=== PATIENT | female | born 1955 | race Caucasian/White ===

== ENCOUNTER 2021-02-12 21:00 | Emergency (ER) | payer MEDICARE, MEDICAID ==
[~2021-02-12] VITALS: Ht 172.7 cm; Wt 68.0 kg
[~2021-02-12 21:00] MED LIST: ACET-685 PO; AMIO100T4 PO; AMLO-170 PO; BUDE0.5A3 IH; BUDE10.22 IH; CARV12.5 PO; CARV25TA PO; CARV6.252 PO; CEPH-350 PO; CLON0.2T PO; EZET10TA20 PO; FURO40TA4 PO; LEVA0.6320 IH; LISI20TA21 PO; LORA-447 PO; LOSA100T14 PO; LOSA1TAB22 PO; LOSA25TA2 PO; LOSA50TA14 PO; NICO-449 TD; PANT40TA3 PO; POTA10TA6 PO; PRED20TA PO; RANO500T2 PO; ROFL500T PO; ROSU10TA2 PO; SERT100T PO; SPIR25TA5 PO; WARF-35 PO; WARF5TAB2 PO; WARF6TAB PO; WARF7.5T PO
--- NOTE | 2021-02-12 21:12 | ER.PDOC ---
General Chief Complaint: Requesting Medical Care Stated Complaint: LEG/FOOT SWELLING Time seen by MD: 21:03 Source: patient, EMS Exam Limitations: no limitations History of Present Illness Initial Comments Patient presents via EMS for right leg pain and swelling. She has hx of lung CA with bone mets. The pain began yesterday and the right foot swelling started today. No chest pain or SOB. No fall or injury.Pain is a burning pressure, 4/10 in severity. No other complaints. She missed her last chemo session 10 days ago because she was not feeling well and her labs were "bad". Allergies: Coded Allergies: No Known Allergies (Unverified , 10/23/19) Home Meds Active Scripts Roflumilast (DALIRESP) 500 Mcg Tablet, 250 MCG PO DAILY for 30 Days, TAB Prov:DEREJE MEYER MD 11/21/19 Levalbuterol Hcl (XOPENEX) 0.63 Mg/3 Ml Vial.neb, 0.63 MG IH RTQ6 for 30 Days, EA Prov:DEREJE MEYER MD 11/21/19 Lorazepam (ATIVAN) 0.5 Mg Tablet, 0.5 MG PO BID for 30 Days, TABLET Prov:DEREJE MEYER MD 11/29/15 Reported Medications Dronabinol (DRONABINOL) 10 Mg Capsule, 1 CAP PO BID MDD 2 Capsule(s) for 30 Days, #60 CAP 0 Refills 02/12/21 Amiodarone HCl (Amiodarone HCl) 100 Mg Tablet, 1 TAB PO QD for 30 Days, #30 TAB 0 Refills 05/03/20 Ezetimibe (ZETIA) 10 Mg Tablet, 1 TAB PO QD for 30 Days, #30 TAB 0 Refills 05/03/20 Warfarin Sodium (COUMADIN) 7.5 Mg Tablet, 1 TAB PO DAILY, #30 TAB 05/03/20 Acetaminophen With Codeine (TYLENOL WITH CODEINE #3 TABLET) 1 Each Tablet, 1 EACH PO Q4H for PAIN, TAB 11/17/19 Losartan Potassium (LOSARTAN POTASSIUM) 100 Mg Tablet, 1 TAB PO DAILY, #30 TAB 5 Refills 11/17/19 Carvedilol 25MG (COREG 25MG) 25 Mg Tablet, 1 TAB PO BID, #60 TAB 5 Refills 11/17/19 Ranolazine (RANEXA) 500 Mg Tab.er.12h, 1 TAB PO BID, #60 TAB 3 Refills 12/18/17 Spironolactone (SPIRONOLACTONE) 25 Mg Tablet, 1 TAB PO BID, #90 TAB 1 Refill 11/27/15 Clonidine Hcl (CLONIDINE HCL) 0.2 Mg Tablet, 1 TAB PO DAILY PRN for ROSA M>170/90, #30 TAB 1 Refill 07/16/15 Amlodipine Besylate (AMLODIPINE BESYLATE) 10 Mg Tablet, 1 TAB PO DAILY, #90 TAB 3 Refills 07/16/15 Past Medical History Medical History: hypertension, other Surgical History: hysterectomy, other Social History Drug Use: none Reviewed Nursing Reviewed: Vital Signs, Abn. Noted, Nursing Assessment Review of Systems Constitutional: no symptoms reported EENTM: no symptoms reported Respiratory: no symptoms reported Cardiovascular: no symptoms reported Gastrointestinal: no symptoms reported Genitourinary: no symptoms reported Musculoskeletal: see HPI Skin: no symptoms reported Psychiatric/Neurological: no symptoms reported All Other Systems: Reviewed and Negative Physical Exam General Appearance: Alert, Mild Distress Lower Extremity: swelling (swelling to right foot and knee. Temp and color normal. No palpable right DP pulse, but dopplerable pulse present. Full ROM) Vascular: no vascular compromise, decreased pulses Neuro/Psych: sensation nml, motor nml, oriented x3, mood/affect nml Skin: color nml, warm/dry Back/Neck: nml inspection Respiratory: no resp distress, breath sounds nml CVS: reg rate & rhythm, heart sounds nml Abdomen: non-tender, no organomegaly Results/Orders Results/Orders Orders - JUWAN MCKEON MD Cbc With Auto Diff (02/12/21 21:14) Comprehensive Metabolic Panel (02/12/21 21:14) Creatine Kinase (02/12/21 21:14) Creatine Kinase Mb (02/12/21 21:14) Troponin I (02/12/21 21:14) Probnp B-Type Cook Fishing Vessel (02/12/21 21:14) PT (02/12/21 21:14) Partial Thromboplastin Time. (02/12/21 21:14) D-Dimer (02/12/21 21:14) Saline Lock (02/12/21 21:14) Morphine Sulfate (Morphine Sulfate) (02/12/21 21:14) Us Krysta (02/12/21 21:25) Morphine Sulfate (Morphine Sulfate) (02/12/21 21:26) Us Rt Vein U/L (02/12/21 21:25) Vital Signs Date Time Temp Pulse Resp B/P (MAP) Pulse Ox O2 Delivery O2 Flow Rate FiO2 02/12/21 21:24 101.1 93 20 115/49 (71) 93 Room Air 02/12/21 21:16 101.1 93 20 02/12/21 21:16 101.1 93 20 93 02/12/21 21:16 101.1 93 20 115/49 (71) 93 Room Air Laboratory Tests Test 02/12/21 21:22 White Blood Count 8.6 10^3/uL (4.5-11.0) Red Blood Count 3.02 10^6/uL (4.00-5.20) L Hemoglobin 8.8 g/dL (12.0-15.0) L Hematocrit 26.8 % (36.0-46.0) L Mean Corpuscular Volume 88.7 fL (78-100) Mean Corpuscular Hemoglobin 29.1 pg (26-34) Mean Corpuscular Hemoglobin Concent 32.8 g/dL (33-36.5) L Red Cell Distribution Width 13.7 % (11.5-14.5) Platelet Count 243 10^3/uL (150-400) Mean Platelet Volume 10.2 fL (7.8-11.0) Neutrophils (%) (Auto) 75.6 % (41.0-85.0) Lymphocytes (%) (Auto) 11.9 % (24.0-44.0) L Monocytes (%) (Auto) 11.8 % (5.0-12.0) Neutrophils # (Auto) 6.5 10^3/uL (1.8-7.7) Lymphocytes # (Auto) 1.02 10^3/uL1 (1.0-4.8) Monocytes # (Auto) 1.0 10^3/uL (0.3-0.8) H Absolute Immature Granulocyte (auto 0.03 10^3 u/L (0-2) Absolute Eosinophils (auto) 0.0 10^3/uL (0.0-0.2) Immature Granulocytes % 0.40 % (0.00-0.50) Eosinophils % 0.1 % (0.0-5.0) Basophils % 0.2 % (0.0-0.2) Basophils # 0.0 10^3/uL (0.0-0.1) Prothrombin Time > 170.9 SEC (9.3-11.3) H Prothrombin Time INR (Non-Therap) Activated Partial Thromboplast Time > 115.1 SEC (24.67-30.72) D-Dimer 0.76 mg/L (0.19-0.49) *H Sodium Level 133 mmol/L (132-145) Potassium Level 3.8 mmol/L (3.6-5.2) Chloride Level 97.0 mmol/L (96-109) Carbon Dioxide Level 24.5 mmol/L (20.0-32) Anion Gap 15.3 Blood Urea Nitrogen 15 mg/dL (7-18) Creatinine 1.44 mg/dL (0.59-1.40) H Estimated GFR () 44.2 (>/=60) Est GFR (CKD-EPI)(Non-Afr Bulgarian) 36.5 (>/=60) BUN/Creatinine Ratio 10.0 Glucose Level 112 mg/dL (70-110) H Calcium Level 8.5 mg/dL (8.4-10.5) Total Bilirubin 0.9 mg/dL (0.2-1.0) Aspartate Amino Transferase (AST) 27 U/L (0-35) Alanine Aminotransferase (ALT) 19 U/L (12-78) Alkaline Phosphatase 62 U/L (50-136) Total Creatine Kinase 32 U/L (26-192) Creatine Kinase MB < 0.5 ng/mL (0.5-3.6) L Troponin I < 0.02 ng/mL (0.00-0.05) Pro-B-Type Natriuretic Peptide 1574 pg/mL (0-125) H Total Protein 7.3 g/dL (6.4-8.2) Albumin 2.9 g/dL (3.4-5.0) L Globulin 4.4 Albumin/Globulin Ratio 0.659 Progress Progress The patient feels improved on reevaluation. Her leg pain improved without i ntervention and she declined pain meds here. US was negative for DVT or arterial occlusion. Suspect further bony mets as the likely cause. She will follow up with PCP in 2 days or return with any new or worsening sx ER DEPART Departure Time of Disposition: 00:01 Disposition: 01 HOME, SELF-CARE Impression: Primary Impression: Right leg swelling Additional Impression: Right leg pain Condition: Improved Referrals: DEREJE MEYER MD (PCP) PRIMARY CARE PROVIDER Duration or Time Spent with Pa: 25 Problem Qualifiers JUWAN MCKEON MD Feb 12, 2021 21:12
[2021-02-12] MEDS ORDERED: MORPHINE SULFATE IV STA (21:14)
[2021-02-12 21:16] VITALS: BP 115/49
[2021-02-12 21:24] VITALS: BP 115/49
[2021-02-12] MEDS ORDERED: MORPHINE SULFATE ONE (21:26)
[2021-02-12 21:28] LABS: BASOPHIL % 0.2 % (0.0-0.2); EOSINOPHIL % 0.1 % (0.0-5.0); LYMPHOCYTES # 1.02 10^3/uL1 (1.0-4.8); LYMPHOCYTES % 11.9 % (24.0-44.0); MEAN CORP HGB 29.1 pg (26-34); MONOCYTES % 11.8 % (5.0-12.0); NEUTROPHIL # 6.5 10^3/uL (1.8-7.7); NEUTROPHILS % 75.6 % (41.0-85.0); PLATELET COUNT 243 10^3/uL (150-400); RED CELL DISTRIBUTION WIDTH 13.7 % (11.5-14.5)
--- NOTE | 2021-02-12 21:30 | NUR ---
MORPHINE PT STATES SHE WOULD LIKE TO HOLD OFF ON THE MORPHINE FOR A BIT. STATES "IF I CHANGE MY MIND I WILL LET YOU KNOW."
[2021-02-12] MEDS ORDERED: DRON10CA5 PO (21:59)
[2021-02-12 22:00] LABS: ALANINE AMINOTRANSFERASE(ML) 19 U/L (12-78); ALKALINE PHOSPHATASE 62 U/L (50-136); ASPARTATE AMINO TRANSFERASE 27 U/L (0-35); CALCIUM 8.5 mg/dL (8.4-10.5); CARBON DIOXIDE 24.5 mmol/L (20.0-32); GLUCOSE 112 mg/dL (70-110)
--- NOTE | 2021-02-12 23:48 | DIREP ---
PROCEDURE:US DUPLEX EXTREM VEINS UNILATER/LIMITED-RT COMPARISON:None. INDICATIONS:RLE SWELLING, PAIN X3D, RT HIP FALL 01/12/2021, HX CA ON CHEMO TECHNIQUE:The RT lower extremity was evaluated utilizing joiner scale images with segmental compression, color Doppler, and spectral Doppler with respiratory variation and augmentation. FINDINGS: Common femoral vein:Patent Superficial femoral vein:Patent Popliteal vein:Patent Posterior tibial vein:Patent Anterior tibial vein:Patent Greater saphenous vein:Patent Left CFV is patent Waveforms: Within normal limits. CONCLUSION:No right-sided DVT. Dictated by: Abhay Holcomb MD on 02/12/2021 at 11:43 PM
--- NOTE | 2021-02-12 23:53 | DIREP ---
PROCEDURE:US ANKLE BRACHIAL INDEX COMPARISON:None. INDICATIONS:decreased pulse right leg, RLE PAIN X3D, HX RT HIP FALL 01/12/2021, PT HAS CA IS ON CHEMO TECHNIQUE:A color duplex Doppler ultrasound examination of the bilateral lower extremities was performed. Color image and bidirectional spectral Doppler wave form analysis, and peak systolic flow measurements of the posterior tibial and dorsalis pedis arteries were performed. FINDINGS: RIGHT LOWER EXTREMITY: GEORGE DP: 1.1 PT: 1.1 POSTERIOR TIBIAL:43 cm/smonophasic DORSALIS PEDIS:60 cm/sbiphasic LEFT LOWER EXTREMITY: GEORGE DP: 1.3 PT: 1.6 POSTERIOR TIBIAL:106 cm/smonophasic DORSALIS PEDIS:178 cm/sbiphasic CONCLUSION:Peripheral vascular disease left greater than right. ABIs greater than 1.4 indicate noncompressible vessels, likely to have significant peripheral vascular disease (PVD). ABIs of 0.91 to 1.3 indicate no significant obstructive disease. ABIs of 0.41 to 0.90 indicate grade I claudication. ABIs less than 0.4 indicate limb-threatening ischemia of grade I or grade II. Dictated by: Abhay Holcomb MD on 02/12/2021 at 11:47 PM
[2021-02-13 00:20] VITALS: BP 97/56
== END 2021-02-13 00:29 | disposition home or self-care (01) ==
LOC: ER 21:00 → EDBD 21:00 → ER 02-13 00:29
DX: M79.661 Pain in right lower leg (principal); M79.89 Other specified soft tissue disorders; I10 Essential (primary) hypertension; Z79.01 Long term (current) use of anticoagulants; Z79.899 Other long term (current) drug therapy; Z85.118 Personal history of other malignant neoplasm of bronchus and lung; Z90.710 Acquired absence of both cervix and uterus
CPT/HCPCS: 36415; 80053; 82550; 82553; 83880; 84484; 85025; 85379; 85610; 85730; 93922; 93971; 99285; J2270; 99284

== ENCOUNTER → 2021-02-18 | Outpatient (CLI) | payer MEDICARE, MEDICAID ==
[~2021-02-18] MED LIST changes: +AMOX1TAB63 PO; +DRON10CA5 PO; +FURO20TA3 PO; +Magnesium Oxide PO; +Non-Formulary Medication PO; +PARO10TA3 PO
== END | disposition home or self-care (01) ==
LOC: NPLAB 11:06
PROVIDERS: ATTEND Specialist
DX: I50.31 Acute diastolic (congestive) heart failure (principal); Z79.01 Long term (current) use of anticoagulants
CPT/HCPCS: 85610

== ENCOUNTER → 2021-02-18 | Outpatient (CLI) | payer MEDICARE, MEDICAID | END | disposition home or self-care (01) | LOC: NPLAB 13:46 | PROVIDERS: ATTEND Specialist | DX: I50.32 Chronic diastolic (congestive) heart failure (principal) | CPT/HCPCS: 36415; 85610 ==

== ENCOUNTER 2021-03-11 13:19 | Inpatient (IN) | payer MEDICARE, MEDICAID ==
[~2021-03-11] VITALS: Ht 175.3 cm; Wt 62.6 kg
[2021-03-11 13:28] VITALS: BP 151/50
[2021-03-11 13:35] VITALS: BP 151/50
--- NOTE | 2021-03-11 13:35 | NUR ---
ARRIVAL PT ARRIVED TO ED WITH C/O DIFFICULTY SWALLOWING FOOD, LIQUIDS AND MEDICATION FOR 1 MONTH. PT REPORTS ANY INTAKE SHE JUST THROWS IT UP, PT DENIES NAUSEA BEING THE CAUSE OF VOMITTING. PTS FAMILY ALSO REPORTS DARK URINE. BEDSIDE MONITORS APPLIED. VITAL SIGNS STABLE. BED IN LOW LOCKED POSITION. 20G IV PLACED TO LEFT FA BY EMS PRIOR TO ARRIVAL. EMS ADMINISTERED FENTANYL 100MCG, ZOFRAN 4MG AND NORMAL SALINE 250ML BOLUS GIVEN EN ROUTE TO [facility].
--- NOTE | 2021-03-11 13:36 | NUR ---
DNR PT REPORTS SHE IS A DNR. DIXON REQUEST REPORTED TO DR MORALES WHO WILL SPEAK WITH PT REGARDING HER WISHES.
[2021-03-11 14:16] VITALS: BP 119/49
[2021-03-11 14:43] LABS: BASOPHIL % 0.6 % (0.0-0.2); EOSINOPHIL # 0.2 10^3/uL (0.0-0.2); EOSINOPHIL % 4.4 % (0.0-5.0); LYMPHOCYTES # 1.04 10^3/uL1 (1.0-4.8); LYMPHOCYTES % 30.6 % (24.0-44.0); MEAN CORP HGB 28.7 pg (26-34); MONOCYTES # 0.6 10^3/uL (0.3-0.8); MONOCYTES % 16.8 % (5.0-12.0); NEUTROPHIL # 1.6 10^3/uL (1.8-7.7); NEUTROPHILS % 46.7 % (41.0-85.0); RED CELL DISTRIBUTION WIDTH 17.1 % (11.5-14.5)
--- NOTE | 2021-03-11 14:50 | PCM.EKG ---
[facility] Test Date: 2021-03-11 Test Time: 14:35:27 Pat Name: FRANCIE BUTTERFIELD Department: Room: 333 Gender: F Mortgage Manager: PATY : 1955 Requested By: JULIO MORALES Order Number: [id number] Reading MD: Julio Morales Measurements Intervals [place] Rate: 73 P: 72 AL: 183 QRS: 61 QRSD: 114 T: 250 QT: 392 QTc: 432 Interpretive Statements Sinus rhythm Incomplete left bundle branch block Abnormal T, consider ischemia, anterior leads Baseline wander in lead(s) V4 Compared to ECG 02/18/2021 18:12:50 Left bundle-branch block now present T-wave abnormality now present Possible ischemia now present Electronically Signed On 03-11-2021 18:09:24 CDT by Julio Morales Please click the below link to view image of tracing.
[2021-03-11] MEDS ORDERED: ZOFRAN IV STA (15:00)
--- NOTE | 2021-03-11 15:06 | ER.PDOC ---
General Chief Complaint: Nausea,Vomiting,Diarrhea Stated Complaint: N/V Time seen by : 15:00 Source: patient Exam Limitations: no limitations History of Present Illness Severity/Quality: mild, moderate Allergies: Coded Allergies: No Known Allergies (Unverified , 10/23/19) Home Meds Active Scripts Amoxicillin/Potassium Clav (AUGMENTIN 875-125 TABLET) 1 Each Tablet, 1 EACH PO HS for 7 Days Prov:DEREJE MEYER MD 02/22/21 Pantoprazole Sodium (PROTONIX) 40 Mg Tablet.dr, 40 MG PO DAILY for 30 Days Prov:DEREJE MEYER MD 02/22/21 [Magnesium Oxide] 400 MG TABLET No Conflict Check, 400 MG PO BID for 14 Days Prov:DEREJE MEYER MD 02/22/21 Budesonide (PULMICORT) 0.5 Mg/2 Ml Ampul.neb, 0.5 MG IH RTBID for 30 Days, AMPULE Prov:DEREJE MEYER MD 02/22/21 Furosemide (FUROSEMIDE) 20 Mg Tablet, 20 MG PO DAILY for 30 Days, TAB Prov:DEREJE MEYER MD 02/22/21 Paroxetine Hcl (PAROXETINE HCL) 10 Mg Tablet, 10 MG PO DAILY for 30 Days, TAB Prov:DEREJE MEYER MD 02/22/21 Carvedilol 12.5MG (COREG 12.MG) 12.5 Mg Tablet, 12.5 MG PO BID for 30 Days, TAB Prov:DEREJE MEYER MD 02/22/21 Reported Medications Ondansetron (ONDANSETRON ODT) 4 Mg Tab.rapdis, 8 MG PO Q8HR, TAB 03/11/21 Warfarin Sodium (WARFARIN SODIUM) 5 Mg Tablet, 7.5 MG PO DAILY24, TAB 03/11/21 Warfarin Sodium (WARFARIN SODIUM) 5 Mg Tablet, 10 MG PO DAILY24, TAB 03/11/21 Budesonide/Formoterol Fumarate (SYMBICORT 80-4.5 MCG INHALER) 10.2 Gm Hfa.aer.ad, 2 PUFF IH BID, #10.2 GRAM 3 Refills 03/11/21 Tiotropium [place] (SPIRIVA) 18 Mcg Cap.w.dev, 18 MCG IH DAILY24 03/11/21 Prochlorperazine Maleate (PROCHLORPERAZINE MALEATE) 10 Mg Tablet, 10 MG PO Q6, TAB 03/11/21 Paroxetine Hcl (PAXIL) 10 Mg Tablet, 10 MG PO DAILY24, TAB 03/11/21 Oxycodone Hcl (OXYCODONE HCL) 10 Mg Tablet, 1 TAB PO QIDP PRN for pain MDD 4 T ablet(s) for 5 Days, #20 TAB 0 Refills 03/11/21 Olanzapine (OLANZAPINE) 5 Mg Tablet, 2.5 MG PO HS, TAB 03/11/21 Losartan Potassium (LOSARTAN POTASSIUM) 100 Mg Tablet, 100 MG PO DAILY24, TAB 03/11/21 Fentanyl 25 Mcg/Hr (DURAGESIC 25 MCG/HR) 1 Each Patch.td72, 1 EACH TP Q72H for PAIN, #5 PATCH 03/11/21 Docusate Sodium (COLACE) 100 Mg Capsule, 100 MG PO DAILY24, CAPSULE 03/11/21 Amlodipine Besylate (AMLODIPINE BESYLATE) 10 Mg Tablet, 10 MG PO DAILY24, TAB 03/11/21 Amiodarone HCl (Amiodarone HCl) 100 Mg Tablet, 1 TAB PO QD for 30 Days, #30 TAB 0 Refills 05/03/20 Ezetimibe (ZETIA) 10 Mg Tablet, 1 TAB PO QD for 30 Days, #30 TAB 0 Refills 05/03/20 Ranolazine (RANEXA) 500 Mg Tab.er.12h, 1 TAB PO BID, #60 TAB 3 Refills 12/18/17 Spironolactone (SPIRONOLACTONE) 25 Mg Tablet, 1 TAB PO BID, #90 TAB 1 Refill 11/27/15 Clonidine Hcl (CLONIDINE HCL) 0.2 Mg Tablet, 1 TAB PO DAILY PRN for ROSA M>170/90, #30 TAB 1 Refill 07/16/15 Discontinued Reported Medications Dronabinol (DRONABINOL) 10 Mg Capsule, 1 CAP PO BID MDD 2 Capsule(s) for 30 Days, #60 CAP 0 Refills 02/12/21 Discontinued Scripts Warfarin Sodium (WARFARIN SODIUM) 5 Mg Tablet, 1 TAB PO DAILY for 14 Days, #90 TAB 1 Refill Prov:DEREJE MEYER MD 02/22/21 [Non-Formulary Medication] 1 EA EA No Conflict Check, 1 EA PO BID for 30 Days Prov:DEREJE MEYER MD 02/22/21 Roflumilast (DALIRESP) 500 Mcg Tablet, 250 MCG PO DAILY for 30 Days, TAB Prov:DEREJE MEYER MD 11/21/19 Levalbuterol Hcl (XOPENEX) 0.63 Mg/3 Ml Vial.neb, 0.63 MG IH RTQ6 for 30 Days, EA Prov:DEREJE MEYER MD 11/21/19 Lorazepam (ATIVAN) 0.5 Mg Tablet, 0.5 MG PO BID for 30 Days, TABLET Prov:DEREJE MEYER MD 11/29/15 Vital Signs First Vital Signs Date Time Temp Pulse Resp B/P (MAP) Pulse Ox O2 Delivery O2 Flow Rate FiO2 02/22/21 09:43 67 03/11/21 13:28 98.0 18 97 03/11/21 13:28 151/50 (83) Room Air Last Vital Signs Date Time Temp Pulse Resp B/P (MAP) Pulse Ox O2 Delivery O2 Flow Rate FiO2 03/11/21 14:16 98.0 70 18 119/49 (72) 97 Room Air Past Medical History Medical History: cancer, high cholesterol, hypertension, other Surgical History: cholecystectomy, hysterectomy, other LMP (females 10-50): postmenopause Social History Alcohol Use: none Drug Use: none Reviewed Nursing Reviewed: Vital Signs, Abn. Noted All Other Systems: Reviewed and Negative Physical Exam General Appearance: Thin HEENT: PERRL/EOMI, Normal ENT Inspection, TMs Normal, Pharynx Normal Neck: Non-Tender, Full Range of Motion, Supple, Normal Inspection Respiratory: chest non-tender, lungs clear, normal breath sounds, no respiratory distress, no accessory muscle use Cardiovascular: Tachycardia Gastrointestinal: Normal Bowel Sounds, Non Tender, Soft Back: Normal Inspection, No CVA Tenderness, Vertebral Tenderness Extremities: Normal Range of Motion, Non-Tender, Normal Inspection, No Pedal Edema, No Calf Tenderness, Normal Capillary Refill, Pelvis Stable Neurologic/Psychiatric: improvement intern II-XII NML as Tested, No Motor/Sensory Deficits, Alert, Normal Mood/Affect, Oriented x 3 Skin: Normal Color, Warm/Dry Lymphatic: No Adenopathy Results/Orders Results/Orders Orders - JULIO MORALES MD Cbc With Auto Diff (03/11/21 14:29) Comprehensive Metabolic Panel (03/11/21 14:29) Creatine Kinase (03/11/21 14:29) Creatine Kinase Mb (03/11/21 14:29) Troponin I (03/11/21 14:29) Probnp B-Type Machine Operations Supervisor (03/11/21 14:29) PT (03/11/21 14:29) Partial Thromboplastin Time. (03/11/21 14:29) Helicobacter Pylori (03/11/21 14:29) D-Dimer (03/11/21 14:29) Xr Chest 1v (03/11/21 14:29) Ekg-Routine (03/11/21 14:29) Saline Lock (03/11/21 14:29) Morphine Sulfate (Morphine Sulfate) (03/11/21 15:00) Ondansetron Hcl/Pf (Zofran) (03/11/21 15:00) 0.9 % Sodium Chloride (Ns 1000ml) (03/11/21 15:30) 0.9 % Sodium Chloride (Ns 1000ml) (03/11/21 15:11) Ondansetron Hcl/Pf (Zofran) (03/11/21 15:11) Morphine Sulfate (Morphine Sulfate) (03/11/21 15:11) Ct Abd/Pelvis Wo Iv Contrast (03/11/21 16:32) Vital Signs Date Time Temp Pulse Resp B/P (MAP) Pulse Ox O2 Delivery O2 Flow Rate FiO2 03/11/21 14:16 98.0 70 18 119/49 (72) 97 Room Air 03/11/21 13:35 98.0 87 18 151/50 (83) 97 Room Air 03/11/21 13:28 98.0 87 18 151/50 (83) 97 Room Air 03/11/21 13:28 98.0 87 18 03/11/21 13:28 98.0 87 18 97 02/22/21 09:43 67 Administered Medications Medications (Trade) Dose Ordered Sig/Chayo Route PRN Reason Start Time Stop Time Status Last Admin Dose Admin Morphine Sulfate (Morphine Sulfate) 2 mg Q4H PRN IV PAIN 4 - 6 03/11/21 15:00 03/12/21 11:41 DC 03/11/21 23:44 2 MG Ondansetron HCl (Zofran) 4 mg STAT STAT IV 03/11/21 15:00 03/11/21 15:05 DC 03/11/21 15:21 4 MG Pantoprazole Sodium (Protonix Iv) 40 mg STAT STAT IV 03/11/21 16:33 03/11/21 16:41 DC 03/11/21 17:00 40 MG Sodium Chloride 1,000 ml @ 0 mls/hr Q0M ONCE IV 03/11/21 15:30 03/11/21 15:31 DC 03/11/21 15:21 1,200 MLS/HR Laboratory Tests Test 03/11/21 14:37 White Blood Count 3.4 10^3/uL (4.5-11.0) L Red Blood Count 2.93 10^6/uL (4.00-5.20) L Hemoglobin 8.4 g/dL (12.0-15.0) L Hematocrit 26.2 % (36.0-46.0) L Mean Corpuscular Volume 89.4 fL (78-100) Mean Corpuscular Hemoglobin 28.7 pg (26-34) Mean Corpuscular Hemoglobin Concent 32.1 g/dL (33-36.5) L Red Cell Distribution Width 17.1 % (11.5-14.5) H Platelet Count 127 10^3/uL (150-400) L Mean Platelet Volume 10.7 fL (7.8-11.0) Neutrophils (%) (Auto) 46.7 % (41.0-85.0) Lymphocytes (%) (Auto) 30.6 % (24.0-44.0) Monocytes (%) (Auto) 16.8 % (5.0-12.0) H Neutrophils # (Auto) 1.6 10^3/uL (1.8-7.7) L Lymphocytes # (Auto) 1.04 10^3/uL1 (1.0-4.8) Monocytes # (Auto) 0.6 10^3/uL (0.3-0.8) Absolute Immature Granulocyte (auto 0.03 10^3 u/L (0-2) Absolute Eosinophils (auto) 0.2 10^3/uL (0.0-0.2) Immature Granulocytes % 0.90 % (0.00-0.50) H Eosinophils % 4.4 % (0.0-5.0) Basophils % 0.6 % (0.0-0.2) H Basophils # 0.0 10^3/uL (0.0-0.1) Prothrombin Time 72.4 SEC (9.6-12.0) H Prothrombin Time INR (Non-Therap) 7.2 *H Activated Partial Thromboplast Time 47.2 SEC (24.67-30.72) D-Dimer 0.69 mg/L (0.19-0.49) *H Sodium Level 141 mmol/L (132-145) Potassium Level 3.5 mmol/L (3.6-5.2) L Chloride Level 105.0 mmol/L (96-109) Carbon Dioxide Level 26.7 mmol/L (20.0-32) Anion Gap 12.8 Blood Urea Nitrogen 8 mg/dL (7-18) Creatinine 1.06 mg/dL (0.59-1.40) Estimated GFR () 63.0 (>/=60) Est GFR (CKD-EPI)(Non-Afr Vincentian) 52.0 (>/=60) BUN/Creatinine Ratio 7.0 Glucose Level 84 mg/dL (70-110) Calcium Level 8.3 mg/dL (8.4-10.5) L Total Bilirubin 0.7 mg/dL (0.2-1.0) Aspartate Amino Transferase (AST) 21 U/L (0-35) Alanine Aminotransferase (ALT) 13 U/L (12-78) Alkaline Phosphatase 61 U/L (50-136) Total Creatine Kinase 23 U/L (26-192) L Creatine Kinase MB 0.5 ng/mL (0.5-3.6) Troponin I < 0.02 ng/mL (0.00-0.05) Pro-B-Type Natriuretic Peptide 1771 pg/mL (0-125) H Total Protein 6.0 g/dL (6.4-8.2) L Albumin 3.0 g/dL (3.4-5.0) L Globulin 3.0 Albumin/Globulin Ratio 1.000 Helicobacter pylori Screen NEGATIVE (NEGATIVE) Consult/PCP Time Consult/PCP Called: 16:00 Consult/PCP: DR BETSY MADDOX DEPART Departure Time of Disposition: 15:00 Disposition: 09 ADMITTED INPATIENT Impression: Primary Impression: Post chemo evaluation Condition: Improved Referrals: DEREJE MEYER MD (PCP) PRIMARY CARE PROVIDER Duration or Time Spent with Pa: 16m JULIO MORALES MD Mar 11, 2021 15:06
[2021-03-11] MEDS ORDERED: NS 1000ML 1,000 ML ONE (15:11)
[2021-03-11] MEDS ORDERED: MORPHINE SULFATE ONE (15:11)
[2021-03-11] MEDS ORDERED: ZOFRAN ONE (15:11)
--- NOTE | 2021-03-11 15:18 | DIREP ---
PROCEDURE:CHEST 1 VIEW COMPARISON:[facility], CR, XRAY CHEST SINGLE VW, 02/18/2021, 05:45 PM. INDICATIONS:emesis FINDINGS: LUNGS/PLEURA:No significant pulmonary parenchymal abnormalities. No effusions. VASCULATURE:Normal. Unremarkable pulmonary vasculature. CARDIAC:Normal heart size. Evidence of prior valve replacement surgery. MEDIASTINUM:Normal mediastinal contour. Post sternotomy changes. BONES:Partially visualized left humeral hardware. Old fracture deformity of the left clavicle. Osteopenia. Degenerative changes in the right shoulder. OTHER:Stable right internal jugular approach Port-A-Cath. CONCLUSION:No acute cardiopulmonary abnormality or significant change. Dictated by: Ar Saavedra M.D. on 03/11/2021 at 03:15 PM
[2021-03-11] MEDS: MORPHINE SULFATE IV PRN ×2 (15:21→23:44)
[2021-03-11 15:25] LABS: ALANINE AMINOTRANSFERASE(ML) 13 U/L (12-78); ALKALINE PHOSPHATASE 61 U/L (50-136); ASPARTATE AMINO TRANSFERASE 21 U/L (0-35); CALCIUM 8.3 mg/dL (8.4-10.5); CARBON DIOXIDE 26.7 mmol/L (20.0-32); GLUCOSE 84 mg/dL (70-110)
[2021-03-11] MEDS ORDERED: NS 1000ML 1,000 ML IV ONE (15:30)
--- NOTE | 2021-03-11 16:24 | NUR ---
DR BETSY MORALES SPOKE WITH DR MEYER AND HE IS ON HIS WAY TO SEE PT.
[2021-03-11] MEDS ORDERED: PROTONIX IV IV STA (16:33)
[2021-03-11] MEDS ORDERED: PROTONIX IV IV ONE (16:58)
[2021-03-11] MEDS ORDERED: SUBLIMAZE IV PRN (17:00)
--- NOTE | 2021-03-11 17:06 | DIREP ---
PROCEDURE:CT ABDOMEN/PELVIS W/O CONTRAST COMPARISON:None. INDICATIONS:EMESIS TECHNIQUE:Axial images were created through the abdomen and pelvis without intravenous contrast material. No oral contrast was administered. Sagittal and coronal reconstructions were performed from source images. FINDINGS: LUNG BASES:Subsegmental atelectasis versus scarring in the right lung base. A few thin-walled cysts are seen measuring up to 1.4 cm in the left lower lobe. No effusion. Normal heart size. Extensive mitral annular calcifications which can be seen with prior rheumatic disease. Hypoattenuation of the blood pool suggesting anemia. Coronary calcifications are seen in the RCA. LIVER:Normal for technique. BILIARY:Gallbladder is absent. No biliary ductal dilatation. PANCREAS:Normal for technique. SPLEEN:Mild splenomegaly measuring 13.1 cm in craniocaudal dimension. No focal lesion. ADRENALS:Normal. No mass or enlargement. URINARY TRACT:No hydronephrosis, urinary tract calculi, or contour deforming renal mass. There is a simple right lower pole cyst. AORTA/VASCULAR:Severe scattered calcified atherosclerosis without abdominal aortic aneurysm. RETROPERITONEUM:Normal. No mass or adenopathy. BOWEL/MESENTERY:Extensive sigmoid diverticulosis without evidence of acute diverticulitis. The appendix is not visualized, though no significant mesenteric inflammatory changes or secondary signs of acute appendicitis are seen. No mechanical obstruction. No ascites or pneumoperitoneum. ABDOMINAL WALL:Normal. No mass or hernia. PELVIC ORGANS:The uterus is surgically absent. There is no suspicious adnexal mass. The urinary bladder is partially distended without significant wall thickening. BONES:Osteopenia. No acute or aggressive osseous abnormality. OTHER:Noncontrast technique decreases diagnostic sensitivity. CONCLUSION: 1. No mechanical obstruction, diverticulitis, or other acute findings in the abdomen or pelvis within the constraints of noncontrast technique. 2. Mild splenomegaly and other incidental findings as above. Dictated by: Ar Saavedra M.D. on 03/11/2021 at 04:56 PM
[2021-03-11 17:10] VITALS: BP 120/53
--- NOTE | 2021-03-11 17:10 | NUR ---
ARRIVAL PT ARRIVED TO FLOOR VIA W/C TO ROOM 333, NO S/S OF DISTRESS NOTED. V/S OBTAINED. CALL LIGHT WITHIN REACH. BED LOCKED AND LOW POSITION.
[2021-03-11] MEDS ORDERED: OLAN5TAB9 PO (17:14)
[2021-03-11] MEDS ORDERED: PROC10TA2 PO (17:14)
[2021-03-11] MEDS ORDERED: LOSA100T14 PO (17:14)
[2021-03-11] MEDS ORDERED: BUDE10.22 IH (17:14)
[2021-03-11] MEDS ORDERED: TIOT18CA IH (17:14)
[2021-03-11] MEDS ORDERED: WARF-35 PO (17:14)
[2021-03-11] MEDS ORDERED: AMLO-170 PO (17:14)
[2021-03-11] MEDS ORDERED: FENT1PAT75 TP (17:14)
[2021-03-11] MEDS ORDERED: ONDA4TAB13 PO (17:14)
[2021-03-11] MEDS ORDERED: DOCU-123 PO (17:14)
[2021-03-11] MEDS ORDERED: PARO10TA57 PO (17:14)
[2021-03-11] MEDS ORDERED: OXYC10TA2 PO (17:14)
[2021-03-11] MEDS: NS 1000ML/KCL 20MEQ 1,000 ML IV SCH (18:01)
[2021-03-11 19:00] VITALS: BP 110/44
[2021-03-11] MEDS: REGLAN IV SCH (20:46)
[2021-03-11] MEDS: RANEXA PO SCH (20:46)
[2021-03-11] MEDS: PULMICORT IH SCH (21:00)
[2021-03-11] MEDS: XOPENEX IH SCH (21:00)
--- NOTE | 2021-03-11 21:00 | NUR ---
2100 pulmicort not given by rt , pt was having nausea at this time.
--- NOTE | 2021-03-11 21:00 | NUR ---
2100 xopenex not given by rt, pt having nausea at this time
--- NOTE | 2021-03-11 23:44 | NUR ---
Morphine 2mg iv given for pain 04/29
[2021-03-11 23:52] VITALS: BP 103/53
[2021-03-12] MEDS: NS 1000ML/KCL 20MEQ 1,000 ML IV SCH ×3 (00:35→16:27)
[2021-03-12] MEDS: XOPENEX IH SCH ×4 (02:38→21:00)
[2021-03-12 03:53] VITALS: BP 112/55
[2021-03-12] MEDS: DILAUDID IV PRN ×2 (08:28→20:09)
[2021-03-12] MEDS: REGLAN IV SCH (08:28)
[2021-03-12] MEDS: PAXIL PO SCH (08:28)
[2021-03-12] MEDS: LASIX PO SCH (08:29)
[2021-03-12] MEDS: PROTONIX IV IV SCH (08:29)
[2021-03-12] MEDS: RANEXA PO SCH ×2 (08:29→21:00)
[2021-03-12] MEDS: PULMICORT IH SCH ×2 (08:32→21:00)
[2021-03-12 09:06] VITALS: BP 110/39
[2021-03-12] MEDS ORDERED: DURAGESIC 25MCG TD SCH (12:00)
[2021-03-12] MEDS ORDERED: COMPAZINE PO SCH (12:00)
[2021-03-12 12:04] VITALS: BP 113/62
[2021-03-12] MEDS: ZOFRAN ODT PO SCH ×2 (14:16→22:00)
--- NOTE | 2021-03-12 16:19 | NUR ---
DISCHARGE PLANNING: CM/SS VISITED WITH PT REGARDING DISCHARGE PLANNING NEEDS. PT LIVES HOME WITH HER AUNT. PT HAS DME IN PLACE INCLUDING WALKER TO ASSIST AMBULATION. PT WAS ON [facility] OUT OF [place], BUT PT AND AUNT HAVE BEEN IN CONTACT WITH "SIS" A NURSE FROM [facility] AND ARE IN THE WORKS OF SETTING THAT UP. PT STATED "THEY ARE SUPPOSE TO BE BRINGING THE BED TODAY AND I SHOULD GO HOME TOMORROW ON THEIR HOSPICE SERVICES. PT DENIED NEEDING ADDITIONAL RESOURCES AND PT'S AUNT STATED "WE HAVE ALREADY SINGED UP AND HAVE EVERYTHING IN PLACE". NO FURTHER CM/SS NEEDS NOTED OR IDENTIFIED AT THIS TIME. CM/SS TO CONTINUE TO FOLLOW AND MONITOR DISCHARGE PLANNING NEEDS.
[2021-03-12 16:24] VITALS: BP 141/57
[2021-03-12] MEDS: REGLAN PO SCH ×2 (16:27→21:00)
[2021-03-12] MEDS: PROCHLORPERAZINE MALEATE PO SCH (17:37)
--- NOTE | 2021-03-12 19:19 | HPH ---
ADMIT DATE: 03/11/2021 DICTATOR NAME: Yessi Gaspar MD CHIEF COMPLAINT: Cough, nausea, vomiting, and unable to eat for 4 days; terminal lung cancer, will go on hospice. HISTORY OF PRESENT ILLNESS: The patient is a 65-year-old white female with underlying history of hypertension, hypertensive heart disease, and has a prosthetic aortic valve. She has stage IV lung cancer and she has gotten chemoradiation, but not tolerating therapy and sees her oncologist, Dr. Moreno. For 3 days has been having vomiting and cannot keep any food down. Went to see her oncologist yesterday, but apparently was unable to see and continued to vomit and came to the emergency room. Hence, she appears clinically dehydrated and she cannot swallow anything and wants to go on hospice, hence admitted for IV fluids and supportive care and hospice initiation. ALLERGIES: None known. MEDICATIONS: She is on the list of medications and apparently, she has not been able to even take her medications because of severe nausea and vomiting and she has been on Coumadin and the dose is being adjusted between 5 and 10 mg. INR is always high and at the present time, she is on Ranexa 500 mg twice a day, Paxil 10 mg once a day, Protonix 40 mg once a day and amlodipine 10 mg once a day, recently on Augmentin twice a day, Pulmicort nebulizer treatment twice a day, Coreg 12.5 mg twice a day, clonidine 0.2 mg on p.r.n. basis when the blood pressure is high, Colace 100 mg daily and she is on Zetia 10 mg once a day. She is on fentanyl patch 25 mcg daily and she is on losartan 100 mg once a day, ondansetron 8 mg q. 8 hours, Oxycodone 10 mg q.i.d. p.r.n. pain. She is unable to take pain medicine and prochlorperazine 10 mg q. 6 hours p.r.n., Aldactone 25 mg twice a day and she is on tiotropium Spiriva 18 mcg by inhalation once a day ___ 10 mg daily. She was on amiodarone 100 mg daily, which was stopped because of nausea and vomiting; magnesium 400 mg twice a day, and olanzapine 5 mg at bedtime. PAST MEDICAL HISTORY: History of hypertension, hypertensive heart disease, COPD, lung cancer, prosthetic aortic valve, segmental prosthetic valve and lung cancer. See my previous history for the details. SOCIAL HISTORY: Prior history of significant smoking, has about [id number] history of smoking. No history of ethanol abuse. FAMILY HISTORY: Positive for heart problems. PHYSICAL EXAMINATION: GENERAL: She is alert, awake, oriented, but she was very weak and unable to sit in bed and she has lost significant weight. VITAL SIGNS: She is 60 kilograms. BMI is 19 and 175 cm tall. Her blood pressure was 100/50 with a pulse of 80, respirations 18, saturation of 90-92 on 2 liters nasal cannula. SKIN: Skin and mucous membranes were very dry. Her speech was feeble. HEENT: Otherwise, unremarkable. No JVD. NECK: No carotid bruits or emphysema. CHEST: Poor air entry bilaterally. Rales noted in the lung bases. HEART: S1, S2 normal. Clicks of the prosthetic valve were heard. ABDOMEN: Rounded and diffuse tenderness, but no rigidity. Hyperactive bowel sounds. EXTREMITIES: Distal pulses poorly felt. No focal neurologic deficit was noted. Proximal muscle wasting is noted. LABORATORY DATA: Showed hemoglobin of 8.4, 3.4 white count. Chemistries were essentially normal. ProBNP 1771. INR was 7.2. D-dimer 0.69. H. pylori negative. Chest x-ray with no acute pulmonary changes. EKG: LVH with diffuse nonspecific ST-T wave changes, strain pattern. CT abdomen and pelvis, no mechanical obstruction. Mild splenomegaly. ASSESSMENT: Acute gastritis, stage IV lung cancer, failure to thrive, inability to tolerate chemoradiation, hospice placement issue. PLAN: At this time, to admit the patient, IV fluids. Hold her medications because her blood pressure is low and she is unable to tolerate a blood pressure medicine and even pain medicines. We will give her medicines parenterally and will call hospice and she does not want to go see the oncologist because of her experience yesterday in the office with inability to see any either of the physicians with significant nausea and vomiting and anorexia. Yessi Gaspar MD DR: ZACH TID: [id number] RECEIPT: [id number]
[2021-03-12 19:25] VITALS: BP 108/72
[2021-03-12] MEDS: ZOFRAN IV PRN (20:09)
[2021-03-12] MEDS: MS CONTIN PO SCH (21:00)
[2021-03-12 23:43] VITALS: BP 133/66
[2021-03-13] MEDS: NS 1000ML/KCL 20MEQ 1,000 ML IV SCH ×4 (00:24→23:53)
[2021-03-13] MEDS: ZOFRAN IV PRN ×6 (00:25→23:52)
--- NOTE | 2021-03-13 03:40 | PNH ---
DATE: 03/12/2021 DICTATOR NAME: Yessi Gaspar MD SUBJECTIVE: The patient is much better. Nausea and vomiting is improved. OBJECTIVE: VITAL SIGNS: Stable, temperature 98, pulse 70, respirations 16, blood pressure 110/39, oxygen 100% on 2 liters nasal cannula. NECK: No JVD, no carotid bruits. HEART: Clicks of prosthetic valve are heard. LUNGS: Clear. ABDOMEN: Soft. EXTREMITIES: Today, no neurological findings. LABORATORY DATA: Chemistry was normal. INR was 7.2. PLAN: We will repeat INR tomorrow and rest of the labs are unremarkable. We will put her on hospice because of her end-stage lung disease with lung cancer and change some of her medicines to oral and see the response. Yessi Gaspar MD DR: REJI TID: [id number] RECEIPT: [id number]
[2021-03-13] MEDS: XOPENEX IH SCH ×2 (03:45→07:59)
[2021-03-13 04:13] VITALS: BP 105/60
[2021-03-13] MEDS: DILAUDID IV PRN ×5 (04:30→23:58)
[2021-03-13] MEDS: PROCHLORPERAZINE MALEATE PO SCH ×4 (05:18→17:35)
[2021-03-13] MEDS: ZOFRAN ODT PO SCH ×3 (05:18→22:00)
[2021-03-13] MEDS: REGLAN PO SCH ×4 (07:30→21:00)
[2021-03-13] MEDS: PULMICORT IH SCH (07:59)
[2021-03-13] MEDS: MS CONTIN PO SCH ×2 (09:00→21:00)
[2021-03-13] MEDS: RANEXA PO SCH ×2 (09:00→21:00)
[2021-03-13] MEDS: PAXIL PO SCH (09:00)
[2021-03-13] MEDS: LASIX PO SCH (09:00)
[2021-03-13] MEDS: PROTONIX IV IV SCH (09:55)
[2021-03-13 09:56] VITALS: BP 130/52
[2021-03-13] MEDS ORDERED: WARF-35 PO (11:34)
[2021-03-13] MEDS ORDERED: METO5TAB2 PO (11:36)
[2021-03-13 12:57] VITALS: BP 115/64
[2021-03-13] MEDS ORDERED: XOPENEX IH PRN (13:30)
[2021-03-13] MEDS: ROCEPHIN 1,000 MG in NS 100ML 100 ML IV SCH (14:30)
[2021-03-13 14:31] LABS: BASOPHIL % 0.8 % (0.0-0.2); EOSINOPHIL # 0.1 10^3/uL (0.0-0.2); EOSINOPHIL % 4.1 % (0.0-5.0); LYMPHOCYTES # 0.75 10^3/uL1 (1.0-4.8); LYMPHOCYTES % 30.6 % (24.0-44.0); MEAN CORP HGB 28.8 pg (26-34); MONOCYTES # 0.4 10^3/uL (0.3-0.8); MONOCYTES % 17.1 % (5.0-12.0); NEUTROPHIL # 1.1 10^3/uL (1.8-7.7); NEUTROPHILS % 46.6 % (41.0-85.0); PLATELET COUNT 107 10^3/uL (150-400); RED CELL DISTRIBUTION WIDTH 16.3 % (11.5-14.5)
[2021-03-13 14:49] LABS: CALCIUM 7.6 mg/dL (8.4-10.5); CARBON DIOXIDE 24.3 mmol/L (20.0-32)
[2021-03-13] MEDS ORDERED: NS 100ML 100 ML IV ONE (15:02)
[2021-03-13] MEDS ORDERED: ROCEPHIN ONE (15:02)
[2021-03-13 16:17] VITALS: BP 125/61
--- NOTE | 2021-03-13 19:50 | NUR ---
PTC/O PAIN AND NAUSEA , PT SPIT UP SMALL AMOUNTY OF BLOODY SPIT. MEDICATED WITH DILAUDID AND ZOFRAN .
[2021-03-13 19:51] VITALS: BP 105/66
[2021-03-13] MEDS ORDERED: BROVANA IH SCH (21:00)
[2021-03-13] MEDS: SYMBICORT 160-4.5 MCG INHALER IH SCH (21:00)
[2021-03-14 00:20] VITALS: BP 108/63
[2021-03-14] MEDS: DILAUDID IV PRN ×5 (03:49→23:48)
[2021-03-14] MEDS: ZOFRAN IV PRN ×4 (03:53→19:55)
[2021-03-14 04:00] VITALS: BP 115/54
[2021-03-14] MEDS: PROCHLORPERAZINE MALEATE PO SCH ×4 (06:00→17:45)
[2021-03-14] MEDS: ZOFRAN ODT PO SCH ×3 (06:00→22:00)
[2021-03-14] MEDS: REGLAN PO SCH ×4 (07:30→21:00)
[2021-03-14 08:06] VITALS: BP 126/59
[2021-03-14] MEDS: PROTONIX IV IV SCH (08:07)
[2021-03-14] MEDS: NS 1000ML/KCL 20MEQ 1,000 ML IV SCH ×2 (08:08→19:34)
[2021-03-14] MEDS: SYMBICORT 160-4.5 MCG INHALER IH SCH ×2 (08:19→21:00)
[2021-03-14] MEDS: PAXIL PO SCH (09:00)
[2021-03-14] MEDS: LASIX PO SCH (09:00)
[2021-03-14] MEDS: MS CONTIN PO SCH ×2 (09:00→21:00)
[2021-03-14] MEDS: RANEXA PO SCH ×2 (09:00→21:00)
[2021-03-14 12:05] VITALS: BP 123/62
[2021-03-14] MEDS ORDERED: OFIRMEV 100 ML IV ONE (12:27)
[2021-03-14] MEDS ORDERED: OFIRMEV IV PRN ×2 (12:30)
[2021-03-14 12:50] LABS: MEAN CORP HGB 28.4 pg (26-34); RED CELL DISTRIBUTION WIDTH 16.2 % (11.5-14.5)
[2021-03-14] MEDS: ZOSYN 3.375 GM 3.375 GM in NS 100ML 100 ML IV SCH ×2 (12:54→18:07)
[2021-03-14] MEDS ORDERED: DURAGESIC TD SCH (13:00)
--- NOTE | 2021-03-14 13:33 | PNH ---
DATE: 03/13/2021 DICTATOR NAME: Yessi Gaspar MD SUBJECTIVE: The patient is having recurrent nausea and vomiting. She cannot keep any food down. Every time she eats she brings it back. She has got regurgitation and has been having epistaxis, on Coumadin, which has been stopped for 2 days. INR is still high. OBJECTIVE: VITAL SIGNS: She had a low-grade temperature also 100.1 with the temperature 99.3 at the present time with pulse of 82, respirations 16, 115/64 blood pressure, off all her blood pressure medicines. Oxygen saturation is 96% requiring 2 liters of oxygen. Intake and output shows she is in negative balance of about 590 mL. PLAN: We will do blood work today and cancel discharge, start her on empiric Rocephin and have . ___ maybe do an EGD to see whether she had a stricture or any other abnormality which could be making her recurrent nausea, vomiting and unable to eat at this time. Yessi Gaspar MD DR: BRYAN/MARIA ESTHER/POOJA TID: [id number] RECEIPT: [id number]
--- NOTE | 2021-03-14 14:49 | PRM.CONS ---
Consultation Reason for Consult: Reason for Consultation: nausea with intractable vomiting, stage IV lung cancer History of Present Illness History of Patient Comments Patient is concerned about nausea and vomiting, nosebleeds today, and is going to be going into hospice. She has not had any chemo for about 6 weeks. Review of Systems Musculoskeletal: arm pain Skin: Bruising, Other Allergies: Coded Allergies: No Known Allergies (Unverified , 10/23/19) Scheduled Budesonide (Pulmicort), 0.5 MG IH RTBID Budesonide/Formoterol Fumarate (Symbicort 80-4.5 Mcg Inhaler), 2 PUFF IH BID, (Reported) Docusate Sodium (Colace), 100 MG PO DAILY24, (Reported) Ezetimibe (Zetia), 1 TAB PO QD, (Reported) Fentanyl 25 Mcg/Hr (Duragesic 25 Mcg/Hr), 1 EACH TP Q72H, (Reported) Furosemide (Furosemide), 20 MG PO DAILY Metoclopramide Hcl (Metoclopramide Hcl), 5 MG PO TID Olanzapine (Olanzapine), 2.5 MG PO HS, (Reported) Ondansetron (Ondansetron Odt), 8 MG PO Q8HR, (Reported) Pantoprazole Sodium (Protonix), 40 MG PO DAILY Paroxetine Hcl (Paroxetine Hcl), 10 MG PO DAILY Paroxetine Hcl (Paxil), 10 MG PO DAILY24, (Reported) Prochlorperazine Maleate (Prochlorperazine Maleate), 10 MG PO Q6, (Reported) Ranolazine (Ranexa), 1 TAB PO BID, (Reported) Spironolactone (Spironolactone), 1 TAB PO BID, (Reported) Tiotropium [place] (Spiriva), 18 MCG IH DAILY24, (Reported) Warfarin Sodium (Warfarin Sodium), 1 TAB PO DAILY [Magnesium Oxide], 400 MG PO BID Scheduled PRN Clonidine Hcl (Clonidine Hcl), 1 TAB PO DAILY PRN for ROSA M>170/90, (Reported) Oxycodone Hcl (Oxycodone Hcl), 1 TAB PO QIDP PRN for pain, (Reported) Discontinued Medications Amiodarone HCl (Amiodarone HCl), 1 TAB PO QD, (Reported) Discontinued Reason: Cancel Amlodipine Besylate (Amlodipine Besylate), 10 MG PO DAILY24, (Reported) Discontinued Reason: Cancel Amoxicillin/Potassium Clav (Augmentin 875-125 Tablet), 1 EACH PO HS Discontinued Reason: Cancel Carvedilol 12.5MG (Coreg 12.MG), 12.5 MG PO BID Discontinued Reason: Cancel Dronabinol (Dronabinol), 1 CAP PO BID, (Reported) Discontinued Reason: No Longer Taking Levalbuterol Hcl (Xopenex), 0.63 MG IH RTQ6 Discontinued Reason: No Longer Taking Lorazepam (Ativan), 0.5 MG PO BID Discontinued Reason: No Longer Taking Losartan Potassium (Losartan Potassium), 100 MG PO DAILY24, (Reported) Discontinued Reason: Cancel Roflumilast (Daliresp), 250 MCG PO DAILY Discontinued Reason: No Longer Taking Warfarin Sodium (Warfarin Sodium), 1 TAB PO DAILY Discontinued Reason: No Longer Taking Warfarin Sodium (Warfarin Sodium), 10 MG PO DAILY24, (Reported) Discontinued Reason: Cancel Warfarin Sodium (Warfarin Sodium), 7.5 MG PO DAILY24, (Reported) Discontinued Reason: Cancel [Non-Formulary Medication], 1 EA PO BID Discontinued Reason: No Longer Taking VTE VTE Risk Total Score: 5 VTE Risk Score VTE Risk: Score 0-1 = Low Risk (Aggressive mobilization; early ambulation; no VTE prophylaxis required) Score 2: Moderate Risk (Intermittent/Pneumatic Compression Device OR Lovenox/Heparin/Coumadin) Score 3-4: High Risk (Intermittent/Pneumatic Compression Device AND Lovenox/Heparin/Coumadin) Score > or =5: Highest Risk (Intermittent/Pneumatic Compression Device AND Lovenox/Heparin/Coumadin) Assessment/Plan Assessment/Plan Assessment/Plan Patient does not have nausea or emesis when I am in the room, but just recently did have some emesis. It would appear that her disease process is causing this issue.Did explain to her that we could consider placing an NG tube, but currently her INR is too high, and her nose is already bleeding. The other possibility would be to place a PEG tube, when her INR is Back to a safe level, and this would allow us to drain her gastric contents, possibly allowing her to drink or eat a popsicle with comfort and then drained.There is no guarantee that this would actually stop theFeeling of dry heaving or emesis. Patient History: Alzheimer's disease Asthma Chronic obstructive pulmonary disease 32 MOTHER (unknown) Congestive heart failure Diabetes mellitus 32 MOTHER 19 CHILD, (38 yrs ) Hypertension 33 FATHER, G8 BROTHER 19 CHILD, No known health problems G8 BROTHER 19 CHILD, 19 CHILD Parkinson's disease G8 SISTER Unknown G8 SISTER No Family History of: Cerebrovascular disorder Diabetes insipidus Plan Patient is currently on the list for hospice. I did just discussed with Dr. Guy. There is a possibility of placing an NG tube or PEG tube at a later date, when her INR is in a safe range. He voices understanding. I did explain again, but this may be her disease process, and placing the PEG tube or NG tube may not relieve her feeling of nausea and emesis.He voiced understanding.They are all aware that I will be signing out to Dr. Padilla in the morning. I will be up to his judgment and her preference to proceed. Physical Exam General Appearance: No Apparent Distress, WD/WN HEENT: PERRL/EOMI, Normal ENT Inspection, TMs Normal, Pharynx Normal Neck: Non-Tender, Full Range of Motion, Supple, Normal Inspection Respiratory: chest non-tender, lungs clear, normal breath sounds, no respiratory distress, no accessory muscle use Gastrointestinal: Normal Bowel Sounds, No Organomegaly, No Pulsatile Mass, Non Tender, Soft Rectal: Deferred Extremities: Normal Range of Motion, Non-Tender, Normal Inspection, No Pedal Edema, No Calf Tenderness, Normal Capillary Refill Neurologic/Psychiatric: histopathology technician II-XII NML as Tested, No Motor/Sensory Deficits, Alert, Normal Mood/Affect, Oriented x 3 Skin: Normal Color, Warm/Dry Lymphatic: No Adenopathy Comments Abdomen nontender. Good bowel sounds. Evidence of previous nosebleeds. Good pulses in extremities. Alert and oriented. Slightly decreased breath sounds. CALIXTO WASSERMAN MD Mar 14, 2021 14:49
[2021-03-14] MEDS: ROCEPHIN 1,000 MG in NS 100ML 100 ML IV SCH (15:03)
[2021-03-14] MEDS ORDERED: NS 25ML 25 ML IV ONE ×2 (15:21→23:44)
--- NOTE | 2021-03-14 15:24 | DIREP ---
PROCEDURE:CHEST 2 VIEWS COMPARISON:[facility], CR, XRAY CHEST SINGLE VW, 03/11/2021, 03:05 PM. [facility], CR, XRAY CHEST SINGLE VW, 02/18/2021, 05:45 PM. INDICATIONS:FEVER FINDINGS: LUNGS/PLEURA:No significant pulmonary parenchymal abnormalities. No effusions. VASCULATURE:Normal. Unremarkable pulmonary vasculature. CARDIAC:Normal heart size. Evidence of prior valve replacement surgery. MEDIASTINUM:Normal mediastinal contour. Post sternotomy changes. Calcified aorta. BONES:Partially visualized left humeral hardware. Old fracture deformity of the left clavicle. Osteopenia. Degenerative changes in the right shoulder. OTHER:Stable right internal jugular approach Port-A-Cath. CONCLUSION:No acute cardiopulmonary abnormality or significant change. Dictated by: Ar Saavedra M.D. on 03/14/2021 at 03:22 PM
[2021-03-14] MEDS: PHENERGAN IV PRN ×2 (15:25→23:47)
[2021-03-14 16:30] VITALS: BP 131/65
--- NOTE | 2021-03-14 19:00 | DIET.OP ---
Nutrition Asmt/Malnutrit 2-17 Actual Date of Review: Mar 14, 2021 Nutritional Screening: Malnutr/Diet Consult Diagnosis: acute gastritis Pertinent Medical Hx/Surgical: Per MD - hx of metal prosthetic aortic valve replacement several years ago, hypertension, hypertensive heart disease, PVCs, ventricular tachycardia, COPD, stage IV lung cancer Subjective Information: telehealth assessment - Pt admitted for Acute gastritis, stage IV lung cancer, failure to thrive, inability to tolerate chemoradiation, and hospice placement. She has been having severe vomitting for 5 days and has been unable to eat. Everything she eats comes right back up. She would like to go on hospice. Per last nutrition assessment 3 weeks ago: pt has been on chemo since last may and has been gradually losing wt since then. Her wt before she started chemo was 210#. She has altered sense of taste and very reduced appetite. At home she eats"whatever tastes or smells good". Current Diet Order/Nutrition S: Clear liquid Pertinent Meds Current Medications Medications (Trade) Dose Ordered Sig/Chayo PRN Reason Start Time Stop Time Status Last Admin Acetaminophen (Ofirmev) 1,000 mg Q6H PRN FEVER 03/14/21 12:30 04/13/21 12:29 03/14/21 12:55 Budesonide/ Formoterol Fumarate (Symbicort 160-4.5 Mcg Inhaler) 2 inh RTBID 03/13/21 21:00 04/12/21 20:59 Ceftriaxone Sodium 1000 mg/ Sodium Chloride 100 ml @ 100 mls/hr Q24HRS 03/13/21 14:30 04/12/21 14:29 03/14/21 15:03 Fentanyl (Duragesic) 1 each Q72H 03/14/21 13:00 04/13/21 12:59 03/14/21 13:05 Furosemide (Lasix) 20 mg DAILY 03/12/21 09:00 04/11/21 08:59 03/12/21 08:29 Levalbuterol HCl (Xopenex) 0.63 mg RTQ6 PRN SHORTNESS OF BREATH 03/13/21 13:30 04/10/21 20:59 Metoclopramide HCl (Reglan) 10 mg ACHS 03/12/21 17:30 04/11/21 17:29 Morphine Sulfate (Ms Contin) 15 mg BID 03/12/21 21:00 04/11/21 20:59 Ondansetron HCl (Zofran Odt) 8 mg Q8HR 03/12/21 14:00 04/11/21 13:59 03/12/21 14:16 Pantoprazole Sodium (Protonix Iv) 40 mg DAILY 03/12/21 09:00 04/11/21 08:59 03/14/21 08:07 Paroxetine HCl (Paxil) 10 mg DAILY 03/12/21 09:00 04/11/21 08:59 03/12/21 08:28 Piperacillin Sod/ Tazobactam Sod 3.375 gm/Sodium Chloride 100 ml @ 100 mls/hr Q6H 03/14/21 12:30 04/13/21 12:29 03/14/21 18:07 Prochlorperazine Maleate (Prochlorperazine Maleate) 10 mg Q6 03/12/21 12:17 04/11/21 11:59 Promethazine HCl (Phenergan) 25 mg Q6H PRN NAUSEA / VOMITING 03/14/21 12:30 04/13/21 12:29 03/14/21 15:25 Ranolazine (Ranexa) 500 mg BID 03/11/21 21:00 04/10/21 20:59 03/12/21 08:29 Pertinent Labs Laboratory Tests Test 03/13/21 14:25 03/14/21 12:40 White Blood Count 2.5 10^3/uL 3.4 10^3/uL Red Blood Count 2.81 10^6/uL 3.03 10^6/uL Hemoglobin 8.1 g/dL 8.6 g/dL Hematocrit 25.0 % 27.5 % Mean Corpuscular Volume 89.0 fL 90.8 fL Mean Corpuscular Hemoglobin 28.8 pg 28.4 pg Mean Corpuscular Hemoglobin Concent 32.4 g/dL 31.3 g/dL Red Cell Distribution Width 16.3 % 16.2 % Platelet Count 107 10^3/uL 123 10^3/uL Mean Platelet Volume 10.5 fL 11.0 fL Neutrophils (%) (Auto) 46.6 % Lymphocytes (%) (Auto) 30.6 % Monocytes (%) (Auto) 17.1 % Neutrophils # (Auto) 1.1 10^3/uL Lymphocytes # (Auto) 0.75 10^3/uL1 Monocytes # (Auto) 0.4 10^3/uL Absolute Immature Granulocyte (auto 0.02 10^3 u/L Absolute Eosinophils (auto) 0.1 10^3/uL Immature Granulocytes % 0.80 % Eosinophils % 4.1 % Basophils % 0.8 % Basophils # 0.0 10^3/uL Prothrombin Time 62.5 SEC Prothrombin Time INR (Non-Therap) 6.2 Sodium Level 139 mmol/L Potassium Level 3.8 mmol/L Chloride Level 104.0 mmol/L Carbon Dioxide Level 24.3 mmol/L Anion Gap 14.5 Blood Urea Nitrogen 6 mg/dL Creatinine 0.90 mg/dL Estimated GFR () 76.0 Est GFR (CKD-EPI)(Non-Afr [place]) 62.8 BUN/Creatinine Ratio 6.0 Glucose Level 61 mg/dL Calcium Level 7.6 mg/dL Magnesium Level 1.0 mg/dL Total Bilirubin 0.9 mg/dL Aspartate Amino Transf (AST/SGOT) 15 U/L Alanine Aminotransferase (ALT/SGPT) 10 U/L Alkaline Phosphatase 57 U/L Total Protein 5.6 g/dL Albumin 2.7 g/dL Globulin 2.9 Albumin/Globulin Ratio 0.931 Height (Feet): 5 Height (Inches): 8 Current Weight: 138 Usual Weight: 210 %UBW: 66 %IBW: 99 Recent Weight Change: Yes (19#(12%) wt decline over the last 3 weeks) Weight Status: Appropriate Food Allergies: No Cultural/Ethnic/[employer]: none Current %PO: Negligible(<25%) Calories/Kcals/Kg: MSJ 1.2-1.4 Kcals Calculated: 2159-6661 kcal Protein: Use Current Weight Protein g/k-1.2 g/kg Protein Calculated: 63-75g Fluid: ml: 7878-5925 ml or 1 ml/kcal Nutritional Problem: Nutr. Problems Present Problems: severe chronic illness related malnutrition Etiology: lung cancer, n/v Signs/Symptoms: 19# (12%) wt decline over the last 3 weeks, pt meeting less than 25% of her nutrition needs the last 5 days. Food and Nutrition Intake (Sev: <50% est energy req 5days Interperation of Weight Loss (: >5% in 1 month Protein-Calorie Malnutrition: Severe Is there a minimum of two crit: Yes RD Comments: Continue reglan, zofran, protonix, phenergan, and IV fluids. Recommend TPN if patient desires continued aggressive medical treatment. RD to monitor care plan and pt's desire for feeding tube placement or TPN Expected Outcomes Pt to d/c on hospice. Feeding tube placement if pt desires for comfort feeds. Malnutrtion/Nutrition Risk Edu: No MD Notificiation Needed?: No Rita Salazar Mar 14, 2021 19:00
[2021-03-14 19:46] VITALS: BP 96/52
[2021-03-15] VITALS (13 sets, daily range): BP systolic 100–127; BP diastolic 50–66
[2021-03-15] MEDS: ZOSYN 3.375 GM 3.375 GM in NS 100ML 100 ML IV SCH ×3 (00:02→12:30)
[2021-03-15] MEDS: NS 1000ML/KCL 20MEQ 1,000 ML IV SCH ×3 (03:16→17:00)
[2021-03-15] MEDS: ZOFRAN IV PRN ×3 (03:50→14:40)
[2021-03-15] MEDS: DILAUDID IV PRN ×3 (03:53→14:40)
--- NOTE | 2021-03-15 04:45 | PNH ---
DATE: 03/14/2021 DICTATOR NAME: Yessi Gaspar MD SUBJECTIVE: The patient is still unable to eat and has and retching. She is not bringing up much of vomitus; epistaxis has improved. I had a consultation with Dr. Friedman, who is a surgical instrument mechanic and she felt maybe she is a candidate for PEG tube. She has stage IV lung cancer. She is running low-grade temperature. OBJECTIVE: VITAL SIGNS: Her temperature was 99.9-100, respirations 18, and 123/62 blood pressure is improved, 100% SpO2 on 2 liters nasal cannula. Her urine output has been acceptable about 1500 mL in 24 hours. NECK: No JVD was discernible. No carotid bruits. LUNGS: Emphysematous chest. Poor air entry bilaterally. Scattered rhonchi noted. HEART: Sounds S1, S2 normal. Tachycardia noted. ABDOMEN: Soft, nontender. Bowel sounds are present. LABORATORY DATA: INR was still 6.2 as on 03/13/2021 - 03/14/2021. Chemistry is essentially normal. Low protein is noted and a proBNP 1771 on 03/11/2021. Potassium 3.8. Chest x-ray did not show any infiltrate. IMPRESSION: Recurrent nausea, vomiting and stage IV lung cancer, for hospice therapy. Temperature, rule out sepsis. Blood cultures drawn, empiric Zosyn 3.375 grams q.6 hours along with Rocephin continued; IV fluids continued. Nephrology decide on the PEG tube once the INR is acceptable. The patient is agreeable at the present time, hospice even being considered. Yessi Gaspar MD DR: GRIFFIN TID: [id number] RECEIPT: [id number]
[2021-03-15] MEDS: ZOFRAN ODT PO SCH ×2 (05:32→14:00)
[2021-03-15] MEDS: PROCHLORPERAZINE MALEATE PO SCH ×3 (05:32→12:00)
--- NOTE | 2021-03-15 05:45 | NUR ---
DR. MEYER NOTIFIED OF PT PT 90.1. ORDER RECEIVED FOR 10MG VIT K IM.
[2021-03-15] MEDS ORDERED: VITAMIN K IM ONE (06:00)
[2021-03-15] MEDS: REGLAN PO SCH ×3 (07:30→17:30)
[2021-03-15] MEDS: PAXIL PO SCH (09:00)
[2021-03-15] MEDS: MS CONTIN PO SCH (09:00)
[2021-03-15] MEDS: LASIX PO SCH (09:00)
[2021-03-15] MEDS: RANEXA PO SCH (09:00)
[2021-03-15] MEDS: SYMBICORT 160-4.5 MCG INHALER IH SCH (09:00)
[2021-03-15] MEDS: PROTONIX IV IV SCH (09:27)
[2021-03-15] MEDS ORDERED: NS 25ML 25 ML IV ONE (09:35)
[2021-03-15] MEDS ORDERED: NS 250ML 250 ML IV ONE ×2 (11:51→14:59)
[2021-03-15] MEDS: ROCEPHIN 1,000 MG in NS 100ML 100 ML IV SCH (14:30)
--- NOTE | 2021-03-15 15:05 | NUR ---
BP 87/53 P.121. NOTIFIED. ORDERS RECEIVED FOR 500CC NS BOLUS X1. WILL CONTINUE WITH PLAN OF CARE.
[2021-03-15] MEDS ORDERED: NS 1000ML 1,000 ML ONE (15:09)
[2021-03-15] MEDS ORDERED: NS 500ML 500 ML IV ONE (16:00)
--- NOTE | 2021-03-15 17:22 | NUR ---
EMS CALLED FOR TRANSPORT HOME. PATIENT DISCHARGING WITH HOME HOSPICE.
--- NOTE | 2021-03-15 17:38 | NUR ---
PATIENT BEING DISCHARGED HOME BY EMS AT THIS TIME IN STABLE CONDITION. DENIES ANY ADDITIONAL NEEDS. RELINQUISHED CARE FOR PATIENT.
--- NOTE | 2021-03-15 17:40 | PRM.PN ---
Progress Note Subjective Physician Notes: INR now 9 Objective Review IO, Exams,& Results Problems Acute/Active Problems: (1) Post chemo evaluation Vital Signs Date Time Temp Pulse Resp B/P (MAP) Pulse Ox O2 Delivery O2 Flow Rate FiO2 03/15/21 17:26 Room Air 03/15/21 17:23 115 16 96 03/15/21 15:35 98.8 105/54 03/15/21 12:56 24 03/15/21 10:47 2.00 Intake and Output 03/15/21 07:00 Intake Total 2200 ml Output Total 2650 ml Balance -450 ml IV Total 2200 ml Output Urine Total 2650 ml Laboratory Tests Test 03/14/21 12:40 03/15/21 04:50 White Blood Count 3.4 10^3/uL Red Blood Count 3.03 10^6/uL Hemoglobin 8.6 g/dL Hematocrit 27.5 % Mean Corpuscular Volume 90.8 fL Mean Corpuscular Hemoglobin 28.4 pg Mean Corpuscular Hemoglobin Concent 31.3 g/dL Red Cell Distribution Width 16.2 % Platelet Count 123 10^3/uL Mean Platelet Volume 11.0 fL Prothrombin Time 90.1 SEC Prothrombin Time INR (Non-Therap) 9.0 Current Medications Medications (Trade) Dose Ordered Sig/Chayo PRN Reason Start Time Stop Time Status Last Admin Acetaminophen (Ofirmev) 1,000 mg Q6H PRN FEVER 03/14/21 12:30 04/13/21 12:29 03/14/21 12:55 Budesonide/ Formoterol Fumarate (Symbicort 160-4.5 Mcg Inhaler) 2 inh RTBID 03/13/21 21:00 04/12/21 20:59 Ceftriaxone Sodium 1000 mg/ Sodium Chloride 100 ml @ 100 mls/hr Q24HRS 03/13/21 14:30 04/12/21 14:29 03/14/21 15:03 Fentanyl (Duragesic) 1 each Q72H 03/14/21 13:00 04/13/21 12:59 03/14/21 13:05 Levalbuterol HCl (Xopenex) 0.63 mg RTQ6 PRN SHORTNESS OF BREATH 03/13/21 13:30 04/10/21 20:59 Morphine Sulfate (Ms Contin) 15 mg BID 03/12/21 21:00 04/11/21 20:59 Piperacillin Sod/ Tazobactam Sod 3.375 gm/Sodium Chloride 100 ml @ 100 mls/hr Q6H 03/14/21 12:30 04/13/21 12:29 03/15/21 06:01 Promethazine HCl (Phenergan) 25 mg Q6H PRN NAUSEA / VOMITING 03/14/21 12:30 04/13/21 12:29 03/14/21 23:47 Heart: Regular rate Abdomen: Normal bowel sounds, Soft Lungs: Clear to auscultation, Normal air movement Assessment & Plan: Assessment 65-year-old female with stage IV lung cancer and elevated INR. Patient with nausea and vomiting. 1. Recommend FFP probably 4 units to get her down to an INR about 3 2. Recommend electrolyte correction and hydration via IV fluids 3. Home with hospice when okay with medicine LIZA CHRISTIANSON MD Mar 15, 2021 17:40
--- NOTE | 2021-03-15 23:22 | DSH ---
DATE OF DISCHARGE: 03/15/2021 DICTATOR NAME: Yessi Gaspar MD FINAL DIAGNOSES: Stage IV lung cancer, nausea, vomiting, epistaxis, metastatic disease, general debility, anorexia, sepsis, possible post fever, neutropenia, chronic anemia chemotherapy related, prosthetic aortic valve, hypoprothrombinemia, history of hypertension, hypertensive heart disease, chronic diastolic heart failure. Please refer to my history and physical to the point of my impression. HOSPITAL COURSE: The patient is a 65-year-old white female who has underlying history of lung cancer and she is on chemotherapy and because of her nausea, vomiting, diarrhea and dehydration, her chemo was stopped and she went to see her oncologist the day before she was admitted and we could not see him. She was not able to keep any food down and has severe nausea, vomiting. She was admitted, was given IV fluids, had fever, was started on antibiotics, Zosyn and Rocephin and severe hypoprothrombinemia was noted. 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 The family has decided to put her on hospice and INR was 9 after stopping Coumadin for almost five days and vitamin K 10 mg IM was given and had antibody in her blood and we will try to give her 2 units of fresh frozen plasma since she has been coughing up and has some degree of hemoptysis and also has epistaxis at the present time. Dr. Friedman did her consultation and PEG tube was her suggestion but I think the family wants her to just be given comfort care, inpatient hospice would be better, but the patient wants to go home and at the present time, we will try to give her 2 units of fresh frozen plasma for her and we will keep her on hospice for supportive terminal care. She has not been able to eat. DISCHARGE MEDICATIONS: She is on Reglan 5 mg 3 times a day before meals and Pulmicort nebulizer treatment twice a day, Symbicort 80/4.5 two puff daily; clonidine 0.2 mg daily on a p.r.n. basis, blood pressure 170/90; Colace 100 mg daily, Zetia 10 mg once a day, which she can discontinue; fentanyl 25 mcg patch every 72 hours and if need be go to 50 mcg q. 72 hours. We will leave it up to the hospice. She is on ondansetron 8 mg tablet q. 8 hours and oxycodone 10 mg q.i.d. p.r.n. pain, Protonix 40 mg once a day, Paxil 10 mg once a day and prochlorperazine 10 mg q. 6h. for nausea, Ranexa 500 mg twice a day, Spiriva 18 mcg capsule daily, and oxygen 2 liters nasal cannula if she needs this. I did stop her amiodarone, amlodipine, Coreg, losartan, Coumadin and we will have hospitalist doctor to take care of her. Yessi Gaspar MD DR: BRYAN/LIZ/CATHY TID: [id number] RECEIPT: [id number]
== END 2021-03-15 17:42 | disposition hospice, home (50) | DRG 871 ==
LOC: EDBD 13:19 → EDUNIT# 13:19 → ER 13:19 → MS 16:50
PROVIDERS: ADMIT Specialist; ATTEND Specialist
PROC: 30233K1 Transfusion of Nonautologous Frozen Plasma into Peripheral Vein, Percutaneous Approach (ICD-10-PCS; principal; 2021-03-15)
DX: A41.9 Sepsis, unspecified organism (principal); E43 Unspecified severe protein-calorie malnutrition; C34.90 Malignant neoplasm of unspecified part of unspecified bronchus or lung; C78.7 Secondary malignant neoplasm of liver and intrahepatic bile duct; I50.32 Chronic diastolic (congestive) heart failure; D68.2 Hereditary deficiency of other clotting factors; R04.2 Hemoptysis; K29.00 Acute gastritis without bleeding; E11.9 Type 2 diabetes mellitus without complications; E78.00 Pure hypercholesterolemia, unspecified; E86.0 Dehydration; I11.0 Hypertensive heart disease with heart failure; J44.9 Chronic obstructive pulmonary disease, unspecified; R04.0 Epistaxis; R62.7 Adult failure to thrive; Z87.891 Personal history of nicotine dependence; Z95.2 Presence of prosthetic heart valve; Z79.2 Long term (current) use of antibiotics; Z90.710 Acquired absence of both cervix and uterus; Z79.01 Long term (current) use of anticoagulants; Z79.899 Other long term (current) drug therapy; Z90.49 Acquired absence of other specified parts of digestive tract; Z68.20 Body mass index [BMI] 20.0-20.9, adult; Z82.5 Family history of asthma and other chronic lower respiratory diseases; Z81.8 Family history of other mental and behavioral disorders; Z82.49 Family history of ischemic heart disease and other diseases of the circulatory system
CPT/HCPCS: 36415; 36430; 71045; 71046; 74176; 80053; 82550; 82553; 83735; 83880; 84484; 85025; 85027; 85379; 85610; 85730; 86677; 86900; 87040; 93005; 94640; 99285; C9113; G0378; J0131; J0696; J1170; J2405; J2543; J2550; J2765; J3490; J7030; J7040; J7050; J7627; J8597; J3430; P9017